=== PATIENT | female | born 1985 | race Caucasian/White ===

== ENCOUNTER 2018-08-31 15:53 | Inpatient (IN) ==
[2018-08-31 16:26] LABS: Bilirubin,Urine Negative (Negative); Blood,Urine Negative (Negative); Clarity,Urine Clear (Clear); Color,Urine Yellow (Yellow); Glucose,Urine (UA) Normal (Normal); Ketones,Urine Negative (Negative); Leukocyte Esterase,Urine Trace (Negative); Nitrite,Urine Negative (Negative); Protein,Urine Negative (Neg-Trace); Specific Gravity,Urine 1.009 (1.010-1.025); Urobilinogen,Urine Normal (Normal)
--- NOTE | 2018-08-31 16:26 | Emergency Department Note ---
Disposition Clinical Impression: Suicidal ideation, Anxiety Depression Qualifiers: Depression Type: unspecified Qualified Code(s): F32.9 - Major depressive disorder, single episode, unspecified Disposition: Admitted As Inpatient Condition: Fair General Adult HPI - General Chief complaint: ED Psychiatric Symptoms Stated complaint: Suicidal Ideations Time Seen by Provider: 08/31/18 16:06 Source: patient Limitations: no limitations Nursing Notes Reviewed: Yes Vital Signs Reviewed: Yes - History of Present Illness Pain Scale: 0 - Related Data Previous Rx's Medication Instructions Recorded HydrOXYzine Pamoate [Vistaril] 50 mg PO TID PRN #15 capsule 01/06/18 Allergies Allergy/AdvReac Type Severity Reaction Status Date / Time sulfamethoxazole Allergy Swelling Verified 09/23/17 22:15 [From Bactrim] of the Eye trimethoprim [From Bactrim] Allergy Swelling Verified 09/23/17 22:15 of the Eye Past Medical History - Past Medical History Medical history: Reports: hypertension, migraine Surgical history: Reports: other (Tonsillectomy) Psychiatric history: Reports: anxiety, depression [employer]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[employer] history: Reports: bilateral tubal ligation - Social History Smoking Status: Current every day smoker Smokeless Tobacco Status: No Alcohol use: Reports: none Drug use: Reports: none Physical Exam - General Limitations: no limitations General appearance: alert, in no apparent distress Course Vital Signs Temperature 98.4 F 08/31/18 15:58 Pulse Rate 133 08/31/18 15:58 Respiratory Rate 20 08/31/18 15:58 Blood Pressure 131/84 08/31/18 15:58 O2 Sat by Pulse Oximetry 96 08/31/18 15:58 Temperature 98.4 F 08/31/18 16:17 Pulse Rate 133 08/31/18 16:17 Respiratory Rate 20 08/31/18 16:17 Blood Pressure 131/84 08/31/18 16:17 O2 Sat by Pulse Oximetry 96 08/31/18 16:17 Oxygen Delivery Oxygen Delivery Room Air Medical Decision Making - [facility] Narrative Medical decision making narrative: 1730 hrs.: Patient's labs are back. Spoke with 1A for evaluation. 2100 hrs.: 1A has evaluated the patient and are going to admit her here at the hospital she is in agreement with plan. [address]. - Lab Data Result diagrams: 08/31/18 16:17 08/31/18 16:17 Lab Results 08/31/18 08/31/18 08/31/18 Range/Units 16:08 16:08 16:08 WBC (4.3-11.1) K/mcL RBC (3.82-4.97) M/mcL Hgb (11.5-15.4) g/dL Hct (35.3-44.9) % MCV (83.0-100.0) fL MCH (28.0-33.3) pg MCHC (31.6-35.5) g/dL RDW (11.5-14.5) % Plt Count (140-400) K/mcL MPV (9.4-12.4) fL Immature Gran % (0-4) % Seg Neutrophils % % Lymphocytes % % Monocytes % % Eosinophils % % Basophils % % Neutrophils # (1.6-8.9) K/mcL Lymphocytes # (0.6-4.6) K/mcL Monocytes # (0.0-1.3) K/mcL Eosinophils # (0.0-0.6) K/mcL Basophils # (0.0-0.2) K/mcL Sodium (136-145) mEq/L Potassium (3.5-5.1) mEq/L Chloride (98-107) mEq/L Carbon Dioxide (23-29) mEq/L BUN (6-20) mg/dL Creatinine (0.60-1.20) mg/dL Est GFR ( Amer) (> 60) Est GFR (Non-Af Amer) (> 60) BUN/Creatinine Ratio (6-26) Glucose (70-105) mg/dL Calculated Osmolality (280-300) Calcium (8.6-10.3) mg/dL TSH (0.340-5.600) mcIU/mL Urine Color Yellow (Yellow) Urine Clarity Clear (Clear) Urine pH 6.0 (5.0-8.0) pH Units Ur Specific [place] 1.009 L (1.010-1.025) Urine Protein Negative (Neg-Trace) mg/dL Urine Glucose (UA) Normal (Normal) mg/dL Urine Ketones Negative (Negative) mg/dL Urine Blood Negative (Negative) Urine Nitrite Negative (Negative) Urine Bilirubin Negative (Negative) Urine Urobilinogen Normal (Normal) mg/dL Ur Leukocyte Esterase Trace H (Negative) Urine Microscopic RBC 3-5 H (0-3) per hpf Urine Microscopic WBC 0-3 (0-3) per hpf Ur Squamous Epith Cells Many H (None-Few) per lpf Urine Bacteria None Seen (None-Few) per hpf Hyaline Casts None Seen (None-Few) per lpf Urine Test Negative (Negative) Salicylates (15.0-30.0) mg/dL Urine Opiates Screen Negative (Pryeyk=265) ng/mL Acetaminophen (10-20) mcg/mL Ur Barbiturates Screen Negative (Eqyaty=850) ng/mL Ur Phencyclidine Scrn Negative (Cutoff=25) ng/mL Ur Amphetamines Screen Positive H (Asnsjc=6509) ng/mL U Benzodiazepines Scrn Positive H (Aojrlf=382) ng/mL Urine Cocaine Screen Negative (Cutoff= 300) ng/mL U Marijuana (THC) Screen Negative (Cutoff = 50) ng/mL Ur Drug Screen Interp See Below Ethyl Alcohol (Less than 10) mg/dL 08/31/18 08/31/18 Range/Units 16:17 16:17 WBC 11.1 (4.3-11.1) K/mcL RBC 4.74 (3.82-4.97) M/mcL Hgb 15.1 (11.5-15.4) g/dL Hct 44.2 (35.3-44.9) % MCV 93.2 (83.0-100.0) fL MCH 31.9 (28.0-33.3) pg MCHC 34.2 (31.6-35.5) g/dL RDW 12.2 (11.5-14.5) % Plt Count 328 (140-400) K/mcL MPV 9.2 L (9.4-12.4) fL Immature Gran % 0.4 (0-4) % Seg Neutrophils % 65.2 % Lymphocytes % 20.9 % Monocytes % 7.9 % Eosinophils % 4.7 % Basophils % 0.9 % Neutrophils # 7.3 (1.6-8.9) K/mcL Lymphocytes # 2.3 (0.6-4.6) K/mcL Monocytes # 0.9 (0.0-1.3) K/mcL Eosinophils # 0.5 (0.0-0.6) K/mcL Basophils # 0.1 (0.0-0.2) K/mcL Sodium 135 L (136-145) mEq/L Potassium 4.3 (3.5-5.1) mEq/L Chloride 107 (98-107) mEq/L Carbon Dioxide 21 L (23-29) mEq/L BUN 12 (6-20) mg/dL Creatinine 0.73 (0.60-1.20) mg/dL Est GFR ( Amer) > 60 (> 60) Est GFR (Non-Af Amer) > 60 (> 60) BUN/Creatinine Ratio 16 (6-26) Glucose 104 (70-105) mg/dL Calculated Osmolality 280 (280-300) Calcium 9.4 (8.6-10.3) mg/dL TSH 0.406 (0.340-5.600) mcIU/mL Urine Color (Yellow) Urine Clarity (Clear) Urine pH (5.0-8.0) pH Units Ur Specific [place] (1.010-1.025) Urine Protein (Neg-Trace) mg/dL Urine Glucose (UA) (Normal) mg/dL Urine Ketones (Negative) mg/dL Urine Blood (Negative) Urine Nitrite (Negative) Urine Bilirubin (Negative) Urine Urobilinogen (Normal) mg/dL Ur Leukocyte Esterase (Negative) Urine Microscopic RBC (0-3) per hpf Urine Microscopic WBC (0-3) per hpf Ur Squamous Epith Cells (None-Few) per lpf Urine Bacteria (None-Few) per hpf Hyaline Casts (None-Few) per lpf Urine Test (Negative) Salicylates < 2.5 L (15.0-30.0) mg/dL Urine Opiates Screen (Nkdaaf=593) ng/mL Acetaminophen < 10 L (10-20) mcg/mL Ur Barbiturates Screen (Xyfbqr=490) ng/mL Ur Phencyclidine Scrn (Cutoff=25) ng/mL Ur Amphetamines Screen (Dyqdvi=8028) ng/mL U Benzodiazepines Scrn (Tztbkp=458) ng/mL Urine Cocaine Screen (Cutoff= 300) ng/mL U Marijuana (THC) Screen (Cutoff = 50) ng/mL Ur Drug Screen Interp Ethyl Alcohol < 10 (Less than 10) mg/dL Attestation Statement - Attestation Attestation: This documentation is done with the assistance of Dragon dictation. Despite efforts made to ensure accuracy, there may be inaccuracies in peanut picker or spelling and typographical errors. I examined this patient and my medical decision-making was reviewed with the Resident Physician. I agree with the documented findings, disposition and treatment plan as described except to the extent set forth below. Patient seen and evaluated on arrival by Dr. Reyes And myself, I agree with her evaluation and management plan, supervised the care the patient outstay. She presents today with anxiety and depression suicidal ideation she says she has a lot of social issues and family issues at home are causing a lot of control. She did not she may need admission. We will order psych clearance on her; labs requested by 1A and then have 1-A to evaluate her.
[2018-08-31 16:28] LABS: Bacteria,Urine None Seen per hpf (None-Few); Hyaline Casts,Urine None Seen per lpf (None-Few); Squamous Epithelial Cell,Urine Many per lpf (None-Few); WBC,Urine 0-3 per hpf (0-3)
[2018-08-31 16:31] LABS: Basophils # 0.1 K/mcL (0.0-0.2); Basophils % 0.9 %; Eosinophils # 0.5 K/mcL (0.0-0.6); Eosinophils % 4.7 %; Hematocrit 44.2 % (35.3-44.9); Hemoglobin 15.1 g/dL (11.5-15.4); Immature Granulocytes % 0.4 % (0-4); Lymphocytes # 2.3 K/mcL (0.6-4.6); Lymphocytes % 20.9 %; Mean Corpuscular HGB Conc 34.2 g/dL (31.6-35.5); Mean Corpuscular Hemoglobin 31.9 pg (28.0-33.3); Mean Corpuscular Volume 93.2 fL (83.0-100.0); Mean Platelet Volume 9.2 fL (9.4-12.4); Monocytes # 0.9 K/mcL (0.0-1.3); Monocytes % 7.9 %; Neutrophils # 7.3 K/mcL (1.6-8.9); Platelet Count 328 K/mcL (140-400); Red Blood Count 4.74 M/mcL (3.82-4.97); Red Cell Distribution Width 12.2 % (11.5-14.5); Segmented Neutrophils % 65.2 %
[2018-08-31 16:34] LABS: Amphetamine Screen,Urine Positive ng/mL (Cutoff=1000); Barbiturate Screen,Urine Negative ng/mL (Cutoff=200); Benzodiazepines Screen,Urine Positive ng/mL (Cutoff=200); Cannabinoid Screen,Urine Negative ng/mL (Cutoff = 50); Cocaine Screen,Urine Negative ng/mL (Cutoff= 300); Opiate Screen,Urine Negative ng/mL (Cutoff=300); Phencyclidine Screen,Urine Negative ng/mL (Cutoff=25)
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
[2018-08-31 16:52] LABS: Acetaminophen < 10 mcg/mL (10-20); BUN/Creatinine Ratio 16 (6-26); Blood Urea Nitrogen 12 mg/dL (6-20); Calcium 9.4 mg/dL (8.6-10.3); Carbon Dioxide 21 mEq/L (23-29); Chloride 107 mEq/L (98-107); Ethanol < 10 mg/dL (Less than 10); Glucose 104 mg/dL (70-105); Osmolality,Calculated 280 (280-300); Potassium 4.3 mEq/L (3.5-5.1); Salicylate < 2.5 mg/dL (15.0-30.0); Sodium 135 mEq/L (136-145); eGFR For Non-African Americans > 60 (> 60)
[2018-08-31 17:05] LABS: Thyroid Stimulating Hormone 0.406 mcIU/mL (0.340-5.600)
[2018-08-31] MEDS ORDERED: *HR* LORazepam 2 MG/ML VIAL IM PRN (20:42)
[2018-08-31] MEDS ORDERED: *HR* LORazepam 1 MG TABLET PO PRN (20:42)
[2018-08-31] MEDS ORDERED: MOM Conc 10 ML UD.LIQ PO PRN (20:42)
[2018-08-31] MEDS ORDERED: Mag Hydrox/Al Hydrox/Simeth 30 ML UDC PO PRN (20:42)
[2018-08-31] MEDS ORDERED: Haloperidol Lactate 5 MG/ML VIAL IM PRN (20:42)
[2018-08-31] MEDS ORDERED: Nicotine 21 MG PATCH.TD24 TD ONE (21:28)
[2018-08-31] MEDS: ALPRAZolam 1 MG TABLET PO SCH (22:04)
[2018-08-31] MEDS: traZODone 50 MG TABLET PO PRN (22:05)
[2018-09-01] MEDS: ALPRAZolam 1 MG TABLET PO SCH ×2 (09:28→20:38)
[2018-09-01] MEDS: Lisinopril 20 MG TABLET PO SCH (09:29)
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
[2018-09-01] MEDS: BuPROPion XL (24 HR) 150 MG TABLET PO SCH (11:11)
[2018-09-01] MEDS: Nicotine 21 MG PATCH.TD24 TD SCH (12:06)
[2018-09-01] MEDS: hydrOXYzine pamoate 25 MG CAPSULE PO PRN (20:38)
[2018-09-01] MEDS: traZODone 50 MG TABLET PO PRN (20:39)
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
[2018-09-02] MEDS: ALPRAZolam 1 MG TABLET PO SCH ×2 (08:53→21:19)
[2018-09-02] MEDS: Nicotine 21 MG PATCH.TD24 TD SCH (08:53)
[2018-09-02] MEDS: BuPROPion XL (24 HR) 150 MG TABLET PO SCH (08:54)
[2018-09-02] MEDS: Lisinopril 20 MG TABLET PO SCH (08:54)
[2018-09-02] MEDS: traZODone 50 MG TABLET PO PRN (21:21)
[2018-09-02] MEDS: hydrOXYzine pamoate 25 MG CAPSULE PO PRN (21:22)
[2018-09-03] MEDS: ALPRAZolam 1 MG TABLET PO SCH ×2 (08:31→21:04)
[2018-09-03] MEDS: BuPROPion XL (24 HR) 150 MG TABLET PO SCH (08:31)
[2018-09-03] MEDS: Lisinopril 20 MG TABLET PO SCH (08:31)
[2018-09-03] MEDS: Nicotine 21 MG PATCH.TD24 TD SCH (08:31)
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
[2018-09-03] MEDS: Ibuprofen 400 MG TABLET PO PRN (16:36)
[2018-09-03] MEDS: traZODone 50 MG TABLET PO PRN (21:04)
[2018-09-03] MEDS: hydrOXYzine pamoate 25 MG CAPSULE PO PRN (21:09)
[2018-09-04] MEDS: Lisinopril 20 MG TABLET PO SCH (08:40)
[2018-09-04] MEDS: ALPRAZolam 1 MG TABLET PO SCH ×2 (08:40→20:44)
[2018-09-04] MEDS: BuPROPion XL (24 HR) 150 MG TABLET PO SCH (08:40)
[2018-09-04] MEDS: Nicotine 21 MG PATCH.TD24 TD SCH (08:41)
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
[2018-09-04] MEDS: Ibuprofen 400 MG TABLET PO PRN (12:33)
[2018-09-04] MEDS: hydrOXYzine pamoate 25 MG CAPSULE PO PRN (19:20)
[2018-09-04] MEDS: traZODone 50 MG TABLET PO PRN (20:45)
[2018-09-04] MEDS: Doxycycline 100 MG CAPSULE PO SCH (20:45)
[2018-09-05] MEDS: Lisinopril 20 MG TABLET PO SCH (08:43)
[2018-09-05] MEDS: ALPRAZolam 1 MG TABLET PO SCH (08:43)
[2018-09-05] MEDS: BuPROPion XL (24 HR) 150 MG TABLET PO SCH (08:43)
[2018-09-05] MEDS: Doxycycline 100 MG CAPSULE PO SCH (08:43)
[2018-09-05] MEDS: Nicotine 21 MG PATCH.TD24 TD SCH (09:00)
[2018-09-05 09:08] VITALS: BP 114/74
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
[2018-09-05] MEDS: hydrOXYzine pamoate 25 MG CAPSULE PO PRN (14:07)
== END 2018-09-05 15:15 | disposition home or self-care (01) | DRG 751 ==
LOC: EMEROOARM 15:53 → 1ANU 20:37
PROVIDERS: ADMIT Psychiatry & Neurology Psychiatry; ATTEND Psychiatry & Neurology Psychiatry